=== PATIENT | male | born 1950 | race Caucasian/White ===

== ENCOUNTER 2017-07-25 10:03 | Day surgery (SDC) | payer OTHER ==
[~2017-07-25] VITALS: Ht 177.8 cm; Wt 86.0 kg
[~2017-07-25 10:03] MED LIST: ASPI81TA82 PO; BENI40TA33 PO; CO Q100C9 PO; IMOD2TAB PO; NEBI20 PO; NORC7.5T PO; TAB-TAB PO; TUMS500C CHEW; VITA-13 PO; VYTO10TA32 PO
[2017-07-25 10:25] VITALS: BP 161/105; PULSE 80; RESP 20; TEMP 98.6; O2SAT 97
[2017-07-25] MEDS ORDERED: VITA100T65 PO (10:51)
[2017-07-25] MEDS ORDERED: TEST1GEL10 TOPICAL (10:51)
[2017-07-25] MEDS ORDERED: OLME1TAB9 PO (10:51)
[2017-07-25] MEDS ORDERED: [UNRECOGNIZED DRUG - CODE] PO (10:51)
[2017-07-25] MEDS ORDERED: TUMERIC CURCUMIN (10:51)
[2017-07-25] MEDS ORDERED: COQ150CA (10:51)
[2017-07-25] MEDS ORDERED: ASPI81CH6 CHEW (10:51)
[2017-07-25] MEDS ORDERED: PRAV20TA2 PO (10:51)
[2017-07-25] MEDS ORDERED: MULT1TAB46 (10:51)
[2017-07-25] MEDS ORDERED: GLUC500T4 PO (10:51)
[2017-07-25] MEDS ORDERED: VITA1000 PO (10:51)
[2017-07-25] MEDS ORDERED: NEBI20 PO (10:51)
[2017-07-25] MEDS ORDERED: VITA10002 PO (10:51)
[2017-07-25] MEDS ORDERED: SODIUM CHLOR 0.9% 1000 ML IV SCH (11:00)
[2017-07-25 11:12] LABS: AUTOMATED NEUTROPHIL # 3.9 TH/MM3 (1.8-7.7); BASOPHIL % 0.7 % (0.0-2.0); EOSINOPHIL # 0.1 TH/MM3 (0-0.4); EOSINOPHIL % 2.2 % (0.0-4.0); HEMATOCRIT 45.5 % (39.0-51.0); HEMOGLOBIN 16.2 GM/DL (13.0-17.0); LYMPHOCYTE # 1.2 TH/MM3 (1.0-4.8); MEAN CELL VOLUME 96.2 FL (80.0-100.0); MEAN CORPUSCULAR HEMOGLOBIN 34.3 PG (27.0-34.0); MEAN CORPUSCULAR HGB CONC 35.6 % (32.0-36.0); MEAN PLATELET VOLUME 7.3 FL (7.0-11.0); MONO % 16.1 % (0.0-8.0); PLATELET COUNT 240 TH/MM3 (150-450); RED BLOOD COUNT 4.73 MIL/MM3 (4.50-5.90); RED CELL DISTRIBUTION WIDTH 13.4 % (11.6-17.2); WHITE BLOOD COUNT 6.3 TH/MM3 (4.0-11.0)
[2017-07-25 11:18] LABS: PROTHROMBIN TIME - PATIENT 10.2 SEC (9.8-11.6)
[2017-07-25 12:10] VITALS: BP 172/99; PULSE 74; RESP 18; TEMP 98.2; O2SAT 96
[2017-07-25] MEDS ORDERED: LIDOCAINE HCL 1% 20 ML VIAL ONE (12:16)
--- NOTE | 2017-07-25 12:19 | RADRPT ---
EXAM DATE/TIME: 07/25/2017 11:07 [place] COMPARISON: No previous studies available for comparison. EXTER[facility] COMPARISON: [facility], [facility]/ [facility]K, Jul 24 2017. INDICATIONS : Right neck mass. MEDICAL HISTORY : Rectal cancer. BPH. Hypertension. Polio. Thrombocytopenia [place]. Hyperlipidemia. SURGICAL HISTORY : Splenectomy. Cervical fusion. Right bicep tendon repair. ENCOUNTER: Initial ACUITY: 1 week PAIN SCORE: Not applicable LOCATION: Right neck. ORGAN: Right lymph node SPECIMENS: Two core specimen(s) submitted for pathologic evaluation. DEVICE: 18 gauge Temno needle Post procedure scanning reveals no hematoma or other complication. The possibility does exist that the tissue obtained will be non-diagnostic. If the sample is non-segun gnostic a repeat biopsy or surgical biopsy may need to be performed. TECHNIQUE: 1. Ultrasound guidance for needle biopsy. 2. Needle biopsy. The risks, benefits and alternatives to the procedure were explained and verbal and written consent w as obtained. The site was prepped in sterile fashion. Full sterile technique was used, including ca p, mask, sterile gloves and gown and a large sterile sheet. Hand hygiene and 2% chlorhexidine and/or betadine/alcohol prep was utilized per protocol for cutaneous antisepsis. The skin and subcutaneous tissues were infiltrated with local anesthetic solution. Sterile gel and sterile probe cover were u tilized for ultrasound guidance. With the patient on the ultrasound table, images were obtained. A needle was advanced into the identified target and the number of specimens as above obtained and nelson bmitted for pathologic evaluation. The patient tolerated the procedure well and left the ultrasound suite in stable condition. CONCLUSION: Uncomplicated ultrasound guided needle biopsy. Two-18 gauge core samples were obtained. Deyvi Glass MD on July 25, 2017 at 12:16 Board Certified Radiologist. This report was verified electronically.
[2017-07-25 12:25] VITALS: BP 166/100; PULSE 72; RESP 18; O2SAT 97
[2017-07-25 13:00] VITALS: BP 163/92; PULSE 77; RESP 18; O2SAT 95
[2017-07-29] MEDS ORDERED: TURM500C7 PO (12:09)
== END 2017-07-25 13:09 | disposition home or self-care (01) ==
LOC: HRAD 10:03 → HRIP 10:03 → HRAD 13:09
PROVIDERS: ATTEND Family Medicine
DX: R22.1 Localized swelling, mass and lump, neck (principal); C20 Malignant neoplasm of rectum; I10 Essential (primary) hypertension; D69.2 Other nonthrombocytopenic purpura; E78.5 Hyperlipidemia, unspecified; N40.0 Benign prostatic hyperplasia without lower urinary tract symptoms
CPT/HCPCS: 38505; 76942; 85025; 85610; 85730; 88307; 88341; 88342; C1729; 88305